=== PATIENT | male | born 1970 | race African-American/Black ===

== ENCOUNTER 2020-07-30 05:20 | Emergency (ER) | payer OTHER ==
[~2020-07-30] VITALS: Ht 182.9 cm; Wt 90.7 kg
[2020-07-30] MEDS ORDERED: PROAIR HFA8.5 GM INH (05:35)
[2020-07-30 05:52] LABS: URINE BILIRUBIN NEGATIVE (Negative); URINE BLOOD 1+ (Negative); URINE CLARITY CLEAR; URINE COLOR YELLOW; URINE GLUCOSE-RANDOM NEGATIVE (Negative); URINE KETONES NEGATIVE (Negative); URINE LEUKOCYTES-REFLEX NEGATIVE (Negative); URINE NITRITE-REFLEX NEGATIVE (Negative); URINE PROTEIN NEGATIVE (Negative); URINE SPECIFIC GRAVITY >= 1.030 (1.005-1.030)
[2020-07-30 06:08] LABS: BACTERIA-REFLEX >30 Many /HPF (None Seen); CRYSTALS None Seen /LPF (None Seen); FINE GRANULAR CASTS 0-3 Few /LPF (None Seen); HYALINE CASTS 0-3 Few /LPF (None Seen); MUCUS 4-6 Moderate strn/LPF (None Seen); SQUAMOUS 0-3 Few /LPF (0-3); URINE RBC 3-10 Few /HPF (0-2); URINE WBC-REFLEX 0-5 Rare /HPF (0-5)
[2020-07-30] MEDS ORDERED: NORVASC 2.5 MG2.5 MG PO (06:38)
[2020-07-30 06:43] VITALS: BP 137/95
== END 2020-07-30 06:43 | disposition home or self-care (01) ==
LOC: M.ERS 05:20
PROVIDERS: Personal Emergency Response Attendant
DX: Z20.2 Contact with and (suspected) exposure to infections with a predominantly sexual mode of transmission (principal); I10 Essential (primary) hypertension; J45.909 Unspecified asthma, uncomplicated; Z90.49 Acquired absence of other specified parts of digestive tract